=== PATIENT | female | born 1970 | race Caucasian/White ===

== ENCOUNTER 2018-11-04 18:50 | Emergency (ER) | payer BC ==
[2018-11-04 19:27] VITALS: BP 136/90
[2018-11-04] MEDS ORDERED: diPHENhydraMINE PO* 25 MG PO ONE (20:02)
--- NOTE | 2018-11-04 20:05 | UC ---
Allergic Reaction HPI - HPI Summary HPI Summary: 5 x 2.5 area of erythema left deltoid--began after getting flu vaccine, no streaking, no fevers, areas warm and erothymic - History of Current Complaint Chief Complaint: [place] Stated Complaint: ALLERGIC REACTION Time Seen by Provider: 11/04/18 19:50 Hx Obtained From: Patient Hx Last Menstrual Period: 1 month ago ?: No Onset/Duration: Sudden Onset, Lasting Days - 2 Pain Intensity: 3 Pain Scale Used: 0-10 Numeric Location: Discrete @ Character: Pruritus Aggravating Factor(s): Heat Alleviating Factor(s): Nothing Associated Signs And Symptoms: Positive: Nausea - Related Hx Possible Reaction To: Medications - influenza vaccine - Allergies/Home Medications Allergies/Adverse Reactions: Allergies Allergy/AdvReac Type Severity Reaction Status Date / Time No Known Allergies Allergy Verified 11/04/18 19:26 Home Medications: Home Medications Levothyroxine Sodium [Levoxyl] 125 mcg PO DAILY 11/04/18 [History Confirmed ] PMH/Surg Hx/FS Hx/Imm Hx Previously Healthy: No Endocrine History: Hypothyroidism - Surgical History Surgical History: None - Social History Occupation: Employed Full-time Lives: With Family Alcohol Use: None Substance Use Type: None Smoking Status (MU): Never Smoked Tobacco Have You Smoked in the Last Year: No - Immunization History Hx Tetanus, Diphtheria Vaccination: No Vaccination Up to Date: Yes Review of Systems All Other Systems Reviewed And Are Negative: Yes Constitutional: Positive: Negative Skin: Positive: Rash - left deltoid at the site of her flu vaccine Eyes: Positive: Negative ENT: Positive: Negative Respiratory: Positive: Negative Cardiovascular: Positive: Negative Gastrointestinal: Positive: Negative Genitourinary: Positive: Negative Motor: Positive: Negative Neurovascular: Positive: Negative Musculoskeletal: Positive: Negative Neurological: Positive: Negative Psychological: Positive: Negative Is Patient Immunocompromised?: No Physical Exam Triage Information Reviewed: Yes Appearance: Well-Appearing, No Pain Distress, Well-Nourished Vital Signs: Initial Vital Signs Temp 99.3 F 11/04/18 19:22 Pulse 67 11/04/18 19:22 Resp 16 11/04/18 19:22 BP 136/90 11/04/18 19:22 Pulse Ox 100 11/04/18 19:22 Vital Signs Reviewed: Yes Eye Exam: Normal Eyes: Positive: Conjunctiva Clear ENT Exam: Normal ENT: Positive: Normal ENT inspection, Hearing grossly normal. Negative: Trismus , Muffled voice, Hoarse voice Dental Exam: Normal Neck exam: Normal Respiratory Exam: Normal Respiratory: Positive: Chest non-tender, Lungs clear, Normal breath sounds, No respiratory distress, No accessory muscle use Cardiovascular Exam: Normal Cardiovascular: Positive: Pulses Normal, Brisk Capillary Refill Musculoskeletal Exam: Normal Musculoskeletal: Positive: Strength Intact, ROM Intact, No Edema Neurological Exam: Normal Neurological: Positive: Alert Psychological Exam: Normal Skin: Positive: Other - 5x2.5 inch area of erythema on left deltoid at site of flu vaccine Allergic Reaction Course/Dx - Course Course Of Treatment: cool/cold compress, Benadryl, follow with pcp or return prn - Differential Dx/Diagnosis Provider Diagnosis: Local reaction to influenza vaccine Discharge ED - Sign-Out/Discharge Documenting (check all that apply): Patient Departure All imaging exams completed and their final reports reviewed: No Studies - Discharge Plan Condition: Stable Disposition: HOME Patient Education Materials: Diphenhydramine (By mouth), Urticaria (ED), Ice Pack Application (ED) Forms: *Work Release Referrals: Domenico COREY,Adithya Miranda [Primary Care Provider] - If Needed - Billing Disposition and Condition Condition: STABLE Disposition: Home
== END 2018-11-04 20:30 | disposition home or self-care (01) ==
LOC: UCEAST 18:50
DX: T88.1XXA Other complications following immunization, not elsewhere classified, initial encounter (principal); Y92.9 Unspecified place or not applicable
CPT/HCPCS: 99212; A9270-GY; G0463